=== PATIENT | female | born 1995 | race American Indian/Alaskan Native ===

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

== ENCOUNTER 2017-10-20 12:39 | Emergency (ER) | payer SELFPAY ==
[2017-10-20 14:20] LABS: Bacteria,Urine 4+ /HPF (Negative); Bilirubin,Urine NEG (Negative); Blood,Urine LG (Negative); Color,Urine Yellow (Yellow); Mucus,Urine 1+ /HPF; Urobilinogen,Urine < 2.0 mg/dL (<2.0)
[2017-10-20 14:21] LABS: RBC,Urine > 182.0 /HPF (0.0-6.0)
[2017-10-20 14:44] LABS: Basophils # (Auto) 0.1 K/mm3 (0.0-0.1); Basophils % (Auto) 0.6 % (0.0-1.8); Eosinophils # (Auto) 0.1 K/mm3 (0.0-0.4); Eosinophils % (Auto) 0.6 % (0.0-4.3); Hemoglobin 12.4 gm/dl (10.1-14.3); Lymphocytes # (Auto) 3.4 K/mm3 (1.2-5.4); Lymphocytes % (Auto) 41.3 % (13.4-35.0); Mean Corpuscular HGB Conc 33 % (30-34); Mean Corpuscular Hemoglobin 29 pg (28-32); Mean Corpuscular Volume 88 fl (79-97); Monocytes # (Auto) 0.9 K/mm3 (0.0-0.8); Monocytes % (Auto) 10.6 % (0.0-7.3); Platelet Count 351 K/mm3 (140-440); Red Blood Count 4.32 M/mm3 (3.65-5.03); Red Cell Distribution Width 14.3 % (13.2-15.2)
--- NOTE | 2017-10-20 15:34 | Emergency Department Report ---
ED Female HPI - General Chief complaint: Vaginal Bleeding Stated complaint: HEAVY BLEEDING Time Seen by Provider: 10/20/17 14:33 Source: patient Mode of arrival: Ambulatory Limitations: No Limitations - History of Present Illness Initial comments: 22-year-old woman presents with 2 day history of heavy vaginal bleeding, reporting using 4-5 pads yesterday, in 3-4 pads today, although with decreased in bleeding since this morning. This has been preceded by a 2 month history of intermittent spotting, regularly and episodically, although not on a daily basis. She has negligible pain, only mild lower abdominal discomfort, back pain , no nausea or vomiting, no diarrhea. She has not had any fever chills or diaphoresis. Patient is a virgin, has never had sexual activity, and also reports that she has a long history of menstrual irregularities, requiring oral contraceptives several years ago, but which she only took for a couple of months to regulate her cycle, but has had variability in her cycle since that time. She has not been on any contraceptives since that time. She does not feel weak or lightheaded, has not passed out, and is resting comfortably with no complaints at time of examination. - Related Data Previous Rx's Medication Instructions Recorded Last Taken Type Azithromycin [Zithromax] 250 mg PO DAILY #6 tablet 06/25/16 Unknown Rx Benzonatate [Tessalon Perles] 100 mg PO Q8HR PRN #12 capsule 06/25/16 Unknown Rx predniSONE [Deltasone] 20 mg PO QDAY #5 tab 06/25/16 Unknown Rx medroxyPROGESTERone ACETATE 10 mg PO DAILY #7 tablet 10/20/17 Unknown Rx [Medroxyprogesterone Acetate] Allergies Allergy/AdvReac Type Severity Reaction Status Date / Time No Known Allergies Allergy Verified 10/20/17 12:49 ED Review of Systems ROS: Stated complaint: HEAVY BLEEDING Other details as noted in HPI Comment: All other systems reviewed and negative Constitutional: denies: chills, fever ENT: denies: ear pain, throat pain Respiratory: denies: cough, shortness of breath, wheezing Cardiovascular: denies: chest pain, palpitations Endocrine: no symptoms reported Gastrointestinal: denies: abdominal pain, nausea, diarrhea Genitourinary: as per HPI Musculoskeletal: denies: back pain, joint swelling, arthralgia Skin: denies: rash, lesions Neurological: denies: headache, weakness, paresthesias ED Past Medical Hx - Past Medical History Previous Medical History?: No Hx Psychiatric Treatment: Yes (Overdose) - Surgical History Additional Surgical History: hernia repair - Social History Smoking Status: Current Some Day Smoker Substance Use Type: None - Medications Home Medications: Home Medications Medication Instructions Recorded Confirmed Last Taken Type Azithromycin [Zithromax] 250 mg PO DAILY #6 tablet 06/25/16 Unknown Rx Benzonatate [Tessalon Perles] 100 mg PO Q8HR PRN #12 capsule 06/25/16 Unknown Rx predniSONE [Deltasone] 20 mg PO QDAY #5 tab 06/25/16 Unknown Rx medroxyPROGESTERone ACETATE 10 mg PO DAILY #7 tablet 10/20/17 Unknown Rx [Medroxyprogesterone Acetate] ED Physical Exam - General Limitations: No Limitations General appearance: alert, in no apparent distress - Head Head exam: Present: atraumatic - Eye Eye exam: Present: PERRL - ENT ENT exam: Present: mucous membranes moist - Neck Neck exam: Present: normal inspection. Absent: tenderness, meningismus - Respiratory Respiratory exam: Present: normal lung sounds bilaterally. Absent: respiratory distress, wheezes, rales, rhonchi - Cardiovascular Cardiovascular Exam: Present: regular rate, normal rhythm, normal heart sounds. Absent: systolic murmur, diastolic murmur - GI/Abdominal GI/Abdominal exam: Present: soft, normal bowel sounds. Absent: distended, tenderness - Rectal Rectal exam: Present: deferred - External exam: Present: other (deferred) - Extremities Exam Extremities exam: Present: normal inspection - Back Exam Back exam: Present: normal inspection - Neurological Exam Neurological exam: Present: alert, oriented X3, CN II-XII intact - Psychiatric Psychiatric exam: Present: normal affect, normal mood - Skin Skin exam: Present: warm, dry, intact, normal color. Absent: cyanosis, pallor ED Course Vital Signs 10/20/17 10/20/17 12:49 14:23 Temperature 36.9 C 37.1 C Pulse Rate 109 H 93 H Respiratory 20 18 Rate Blood Pressure 160/76 Blood Pressure 141/77 [Right] O2 Sat by Pulse 100 Oximetry ED Medical Decision Making - Lab Data Result diagrams: 10/20/17 14:05 serum HCG negative UA contaminated with blood, negative for pyuria or bacteriuria - Medical Decision Making Patient's symptoms are compatible with dysfunctional uterine bleeding, with some preceding vertigo symptoms of bleeding consistent with menorrhagia, and given inconsistent history of variability of her menstrual cycles, likely is buildup of uterine tissue and incompletely slough and at time of menstrual cycle. Bleeding has subsided substantially at this time, been given patient's virginal status, but on examination was deferred as likely to be noncontributory to this time. We will try patient on a brief trial of progesterone suppression of bleeding, with stimulation of withdrawal bleeding afterwards, and will recommend patient for gynecologic evaluation afterwards. - Differential Diagnosis differential bleeding, menorrhagia, Critical care attestation.: If time is entered above; I have spent that time in minutes in the direct care of this critically ill patient, excluding procedure time. ED Disposition Clinical Impression: Dysfunctional uterine bleeding Disposition: TO HOME OR SELFCARE Is pt being admited?: No Does the pt Need Aspirin: No Condition: Stable Instructions: Dysfunctional Uterine Bleeding (ED) Prescriptions: medroxyPROGESTERone ACETATE [Medroxyprogesterone Acetate] 10 mg PO DAILY #7 tablet Referrals: PRIMARY CARE, [Primary Care Provider] - 3-5 Days JONATHAN SCHERER MD [Staff Physician] - 3-5 Days Time of Disposition: 15:54
[2017-10-20] MEDS ORDERED: PROVERA PO SCH (16:00)
[2017-10-20 16:53] VITALS: BP 119/65
== END 2017-10-20 16:58 | disposition home or self-care (01) ==
LOC: ED 12:39
DX: N93.8 Other specified abnormal uterine and vaginal bleeding (principal); R10.2 Pelvic and perineal pain; F17.200 Nicotine dependence, unspecified, uncomplicated
CPT/HCPCS: 36415; 81001; 84702; 85025; 86850; 86900; 86901; 99283